=== PATIENT | male | born 1975 | race Caucasian/White ===

== ENCOUNTER 2021-04-18 19:56 | Emergency (ER) | payer BC ==
[~2021-04-18] VITALS: Ht 180.3 cm; Wt 116.3 kg
[2021-04-18] MEDS ORDERED: ONDANSETRON 2MG/ML, 2ML IVPush ONE (20:30)
[2021-04-18] MEDS ORDERED: SODIUM CHLORIDE FLUSH 10ML SYR IVF ONE (20:30)
[2021-04-18] MEDS ORDERED: SODIUM CHLORIDE 0.9% 1,000ML IVBOLUS ONE (20:30)
[2021-04-18 21:15] LABS: BASOPHILS % (AUTO) 0 % (0-1); EOSINOPHILS % (AUTO) 1 % (1-7); LYMPHOCYTES % (AUTO) 14 % (22-44); MEAN CORPUSCULAR HGB CONC 35.9 g/dL (33.2-36.2); MEAN PLATELET VOLUME 7.9 fL (7.4-10.4); MONOCYTES % (AUTO) 9 % (2-9); NEUTROPHILS % (AUTO) 76 % (42-75); PLATELET COUNT 335 x10^3/uL (130-400); RED BLOOD COUNT 5.21 x10^6/uL (4.38-5.82); RED CELL DISTRIBUTION WIDTH 13.3 % (9.4-14.8)
[2021-04-18 21:20] LABS: ALBUMIN 3.3 g/dL (3.4-5.0); ANION GAP 6 mmol/L (5-15); CHLORIDE 104 mmol/L (98-107)
[2021-04-18 21:25] LABS: ALANINE AMINOTRANSFERASE 32 U/L (12-78); ALKALINE PHOSPHATASE 80 U/L (45-117); BILIRUBIN,TOTAL 0.4 mg/dL (0.2-1.0); CREATININE 0.85 mg/dL (0.7-1.3); TOTAL PROTEIN 7.7 g/dL (6.4-8.2)
[2021-04-18] MEDS ORDERED: ALBUTEROL SULFATE 2.5 MG/3 ML NPPB ONE (21:30)
[2021-04-18] MEDS ORDERED: ALBUTEROL SULFATE 2.5 MG/3 ML ONE (21:32)
[2021-04-18] MEDS ORDERED: ONDANSETRON 2MG/ML, 2ML ONE (21:32)
[2021-04-18 22:42] VITALS: BP 157/80
--- NOTE | 2021-04-18 22:50 | NUR ---
Patient given discharge instructions and they have confirmed that they understand the instructions. Patient ambulatory with steady gait. NAD, all questions answered appropriately, denies additional needs at this time. No personal belongings left in room after discharge.
== END 2021-04-18 22:52 | disposition home or self-care (01) ==
LOC: ED 21:32
DX: R11.2 Nausea with vomiting, unspecified (principal); Z20.822 Contact with and (suspected) exposure to COVID-19; J45.909 Unspecified asthma, uncomplicated; R05 Cough; R06.02 Shortness of breath; Z77.22 Contact with and (suspected) exposure to environmental tobacco smoke (acute) (chronic)
CPT/HCPCS: 36415; 71045; 80053; 83690; 85025; 94640; 96374; 99284; J2405; J7030; J7512; J7613; U0003; U0005